=== PATIENT | female | born 1975 | race Caucasian/White ===

== ENCOUNTER 2021-01-24 19:25 | Emergency (ER) | payer SELFPAY ==
[~2021-01-24] VITALS: Ht 165.1 cm; Wt 93.2 kg
[~2021-01-24 19:25] MED LIST: IBUP-2088 PO; PREN1TAB80 PO
[2021-01-24 20:14] VITALS: BP 125/78
== END 2021-01-24 21:30 | disposition left against medical advice (07) ==
LOC: EMS 19:25
DX: Z53.21 Procedure and treatment not carried out due to patient leaving prior to being seen by health care provider (principal)